=== PATIENT | female | born 1955 | race Caucasian/White ===

== ENCOUNTER → 2021-06-19 | Outpatient (CLI) | payer OTHER | LOC: CAT | PROVIDERS: ATTEND Internal Medicine Cardiovascular Disease | DX: Z13.6 Encounter for screening for cardiovascular disorders (principal); I25.10 Atherosclerotic heart disease of native coronary artery without angina pectoris; E78.00 Pure hypercholesterolemia, unspecified ==

== ENCOUNTER → 2021-06-25 | Outpatient (CLI) | payer OTHER | LOC: SJCVCIMAG 07:19 | PROVIDERS: ATTEND Internal Medicine Cardiovascular Disease | DX: R07.89 Other chest pain (principal); E78.5 Hyperlipidemia, unspecified ==